=== PATIENT | female | born 1955 ===

== ENCOUNTER 2017-04-09 14:37 | Emergency (ER) | payer MEDICAID ==
[2017-04-09 14:56] VITALS: BMI 31.6
[2017-04-09 15:04] VITALS: TEMP 99.1; O2SAT 98
--- NOTE | 2017-04-09 15:24 | C.PDOC ---
History Of Present Illness 61 year old female presents to ED with complaints of pain and lump to left nostril for 2 days. Additionally patient complains of cough and congestion for 10 days. She states she tried OTC medications without relief. She made appointment for PCP Dr Ewing but not for another week and is here for evaluation. Patient Denies any fever, chest pain, SOB, drainage or any other complaints at this time. Time Seen by Provider: 04/09/17 15:16 Chief Complaint (Nursing): ENT Problem History Per: Patient History/Exam Limitations: no limitations Onset/Duration Of Symptoms: Days Current Symptoms Are (Timing): Still Present Past Medical History Reviewed: Historical Data, Nursing Documentation, Vital Signs Vital Signs: Last Vital Signs Temp 99.1 F 04/09/17 15:03 Pulse 72 04/09/17 15:41 Resp 18 04/09/17 15:41 BP 136/75 04/09/17 15:41 Pulse Ox 98 04/09/17 17:09 - Medical History PMH: Asthma, Back Problems, Fractures, HTN Family History: States: Unknown Family Hx - Social History Hx Tobacco Use: Yes Hx Alcohol Use: No Hx Substance Use: Yes (occasionally) - Immunization History Hx Tetanus Toxoid Vaccination: No Hx Influenza Vaccination: No Hx Pneumococcal Vaccination: No Review Of Systems Constitutional: Negative for: Fever, Chills ENT: Positive for: Nose Pain. Negative for: Nose Discharge Respiratory: Negative for: Shortness of Breath Skin: Negative for: Rash Neurological: Negative for: Headache Physical Exam - Physical Exam Appears: Non-toxic, No Acute Distress Skin: Normal Color, Warm Head: Atraumatic, Normacephalic Eye(s): bilateral: Normal Inspection, EOMI Ear(s): Bilateral: Normal Nose: Other (Left nare tenderness, Erythematous nodule on medial aspect, no drainage) Oral Mucosa: Moist Throat: Normal, No Erythema, No Exudate, No Drooling Neck: Normal ROM Chest: Symmetrical Cardiovascular: Rhythm Regular, No Murmur Respiratory: Normal Breath Sounds, No Rales, No Rhonchi, No Wheezing Extremity: Normal ROM, Capillary Refill (<2 seconds) Neurological/Psych: Oriented x3, Normal Speech ED Course And Treatment O2 Sat by Pulse Oximetry: 98 (RA) Pulse Ox Interpretation: Normal Medical Decision Making Medical Decision Makin y.o female with tender nodule to left nare and URI symptoms. Patient has no fever and in no acute distress. recommend applying warm towel to nasal area and will prescribe bactroban ointment to apply. Will treat for URI and instruct to follow up with Dr Ewing Disposition Counseled Patient/Family Regarding: Need For Followup, Rx Given - Disposition Referrals: Efrain Ewing MD [Primary Care Provider] - Disposition: HOME/ ROUTINE Disposition Time: 15:21 Condition: STABLE Additional Instructions: apply moist hot cloths 3 times a day for about 15 to 20 minutes at a time to nose area and apply cream twice daily for one week you may need to have area checked for any drainage. Follow up with your primary medical doctor or clinic in 2-5 days for further evaluation. Return to the emergency department at any time if symptoms persist or worsen. Prescriptions: Amoxicillin 500 mg PO BID #14 tablet Mupirocin 2% Nasal [Bactroban 2% Nasal] 1 gm ROBYN BID #1 applic Instructions: Upper Respiratory Infection (ED), Furunculosis and Carbunculosis (ED) - POA Present On Arrival: None - Clinical Impression Clinical Impression: Furuncle of nose, Upper respiratory infection - PA / [employer] / Resident Statement MD/DO has reviewed & agrees with the documentation as recorded. - Scribe Statement The provider has reviewed the documentation as recorded by the Reillyibkari Corley All medical record entries made by the Erickson were at my direction and personally dictated by me. I have reviewed the chart and agree that the record accurately reflects my personal performance of the history, physical exam, medical decision making, and the department course for this patient. I have also personally directed, reviewed, and agree with the discharge instructions and disposition.
[2017-04-09 15:42] VITALS: BP 136/75; PULSE 72; RESP 18
== END 2017-04-09 16:00 | disposition home or self-care (01) ==
LOC: C.ER 14:37 → SUPCPDRO 14:37 → C.ER 16:00
DX: J06.9 Acute upper respiratory infection, unspecified (principal); J34.0 Abscess, furuncle and carbuncle of nose; Z72.0 Tobacco use

== ENCOUNTER 2019-03-10 12:03 | Outpatient (CLI) | payer MEDICAID | END 2019-03-10 12:04 | disposition home or self-care (01) | LOC: C.RADIC 12:03 ==